=== PATIENT | male | born 1940 | race Caucasian/White ===

== ENCOUNTER 2025-10-09 14:40 | Emergency (ER) | payer SELFPAY ==
[2025-10-09] VITALS (19 sets, daily range): BP systolic 129–164; BP diastolic 62–77; PULSE 69–112; RESP 18–25; TEMP 37.4; O2SAT 90–99; BMI 23.7
--- NOTE | 2025-10-09 14:59 | ED_ITS ---
HPI - General Adult General Chief complaint: Neuro Symptoms/Deficit Stated complaint: post op / slurred speech Time Seen by Provider: 10/09/25 14:59 History of Present Illness HPI narrative: 85-year-old gentleman who had a traumatic brain bleed was sent to [facility] had a craniotomy discharged home yesterday seemed to be improving his family notes that by mid day today he has slightly drooping left face, is no longer able to speak with increasing weakness. This is a definite change from yesterday. Family describes that he was able to carry on a complete conversation, he is slightly hard of hearing, he was independent with cane for assistance with an acute change to all of that at around noon. Review of Systems Review of Systems Narrative: Pertinent positive and negative findings as per HPI Patient History Medical History (Updated 10/09/25 @ 18:52 by Bibi Cox MD) Hyperlipidemia Hypertension Severe aortic stenosis Emphysema (subcutaneous) (surgical) resulting from a procedure Type 2 diabetes mellitus Intracranial hemorrhage Social History Smoking Status: Never smoker Exam Initial Vital Signs Initial Vital Signs: Vital Signs Temperature 99.3 F 10/09/25 14:51 Pulse Rate 102 H 10/09/25 14:51 Respiratory Rate 18 10/09/25 14:51 Blood Pressure 129/67 10/09/25 14:51 Pulse Oximetry 97 10/09/25 14:51 Oxygen Delivery Method Room Air 10/09/25 14:51 General: Chronically ill-appearing, anastacia still in place over the scalp with a recent craniotomy, in a wheelchair, HEENT: Moist mucous membranes, normal sclera with reactive pupils, Respiratory: Lungs are clear to auscultation, no wheezing no rales no rhonchi. Full and symmetrical air movement Cardiac: Regular rate and rhythm, systolic ejection murmur Abdomen: Soft, nontender, no rebound or guarding, no flank pain Skin: Warm and dry, Neurologic: Globally weak, significant hearing loss at baseline, significant expressive aphasia and moderate dysarthria, slight left facial droop, global weakness in upper and lower extremities symmetrically Extremities: No trauma, Course Orders Ordered: ED Orders 10/09/25 15:01 CT head/brain wo con Stat 10/09/25 15:02 XR chest 1V Stat EKG-12 Lead Stat 10/09/25 15:12 Complete Blood Count AUTO DIFF Stat Comprehensive Metabolic Panel Stat Lactate (Lactic Acid) Stat Magnesium Stat NT-proBNP (BNP-Adult 18+) Stat PTT Partial Thromboplastin Fidel Stat Procalcitonin Stat Prothrombin Time INR Stat Troponin I Stat 10/09/25 18:15 Urinalysis and Microscopic Stat Hydromorphone HCl (Hydromorphone Hcl 0.5 Mg/0.5 Ml Syringe) 0.5 mg IV Q15MIN PRN PRN Reason: Pain, Last Admin: 10/09/25 16:39 Dose: 0.5 mg Documented By: LYLE Vital Signs Vital signs: Vital Signs - 8 hr 10/09/25 14:51 10/09/25 15:35 10/09/25 16:00 Temperature 99.3 F Pulse Rate 102 H 83 84 Respiratory Rate 18 21 24 Blood Pressure 129/67 Pulse Oximetry 97 99 96 Oxygen Delivery Method Room Air Nasal Cannula Oxygen Flow Rate 2 10/09/25 16:03 10/09/25 16:03 10/09/25 16:30 Temperature Pulse Rate 82 Respiratory Rate 22 Blood Pressure 144/67 H 154/69 H Pulse Oximetry 94 Oxygen Delivery Method Oxygen Flow Rate 10/09/25 16:30 10/09/25 17:00 10/09/25 17:01 Temperature Pulse Rate 80 112 H Respiratory Rate 24 24 Blood Pressure 147/65 H Pulse Oximetry 96 Oxygen Delivery Method Nasal Cannula Oxygen Flow Rate 2 10/09/25 17:01 10/09/25 17:30 10/09/25 17:30 Temperature Pulse Rate 112 H 91 H Respiratory Rate 25 H 24 Blood Pressure 147/77 H Pulse Oximetry 91 93 Oxygen Delivery Method Nasal Cannula Nasal Cannula Oxygen Flow Rate 2 2 10/09/25 18:00 10/09/25 18:00 10/09/25 18:30 Temperature Pulse Rate 88 83 Respiratory Rate 22 21 Blood Pressure 154/77 H Pulse Oximetry 99 Oxygen Delivery Method Oxygen Flow Rate 10/09/25 18:30 Temperature Pulse Rate Respiratory Rate Blood Pressure 164/70 H Pulse Oximetry Oxygen Delivery Method Oxygen Flow Rate Medical Decision Making Lab Data 10/09/25 15:12 10/09/25 15:12 Labs: Lab Results 10/09/25 10/09/25 10/09/25 Range/Units 15:12 17:14 18:15 WBC 7.5 (4.5-11.0) X10^3/uL RBC 3.80 L (4.5-5.9) X10^6/uL Hgb 10.2 L (13.5-17.5) g/dL Hct 31.2 L (41-53) % MCV 82.2 (80-100) fL MCH 26.8 (26-34) PG MCHC 32.6 (30-36) % RDW 18.5 H (11.6-14.8) % Plt Count 219 (150-400) X10^3/uL Neut % (Auto) 70.6 (50-75) % Lymph % (Auto) 17.1 L (25-40) % [place] % (Auto) 7.4 (3-14) % Eos % (Auto) 3.2 (2-4) % Baso % (Auto) 1.7 (0-2) % Neut # (Auto) 5300 (4315-9813) /uL Lymph # (Auto) 1300 (8182-2019) /uL [place] # (Auto) 600 (0-900) /uL Eos # (Auto) 200 (0-450) /uL Baso # (Auto) 100 (0-100) /uL PT 12.6 H (9.4-12.5) SECONDS INR 1.1 (0.9-1.3) APTT 24 L (25.1-36.5) SECONDS Sodium 135 L (137-145) mmol/L Potassium 4.1 (3.4-5.1) mmol/L Chloride 101 (98-107) mmol/L Carbon Dioxide 22 (22-32) mmol/L BUN 15 (9-20) mg/dL Creatinine 0.75 (0.66-1.25) mg/dL Estimated GFR > 60 (>60) mL/min BUN/Creatinine Ratio 20.0 (6-22) Glucose 140 H (70-99) mg/dL Lactate 2.6 H 2.1 (0.7-2.1) mmol/L Calcium 8.4 (8.4-10.2) mg/dL Magnesium 1.0 L (1.6-2.3) mg/dL Total Bilirubin 0.7 (0.2-1.3) mg/dL AST 35 (17-59) IU/L ALT 19 (<50) IU/L Alkaline Phosphatase 191 H (38-126) U/L Troponin I < 0.012 (0.01-0.034) ng/mL NT-Pro-B Natriuret Pep 404 (<450) pg/mL Total Protein 7.7 (6.3-8.2) g/dL Albumin 4.1 (3.5-5.0) g/dL Globulin 3.6 (1.7-4.1) g/dL Albumin/Globulin Ratio 1.1 (1.0-2.8) Procalcitonin 0.070 (<0.5) ng/mL Urine Color Yellow Urine Appearance Clear Urine pH 7.0 (4.5-8.0) Ur Specific [place] 1.015 (1.000-1.035) Urine Protein Trace H (Negative) Urine Glucose (UA) Negative (Negative) g/dL Urine Ketones Negative (NEGATIVE) Urine Occult Blood Negative (Negative) Urine Nitrate Negative (Negative) Urine Bilirubin Negative (NEGATIVE) Urine Urobilinogen 2.0 H (0.2) E.U./dL Ur Leukocyte Esterase Negative (NEGATIVE) Urine RBC 0-1/hpf (0-5/HPF) Urine WBC 0-1/hpf (0-5/HPF) Ur Squamous Epith Cells 0-1 /hpf (0-5/HPF) Urine Bacteria Occasional (0-1) (None) Ur Culture Indicated? Cult not indicated Vol Urine Centrifuged 10ml (spun) Imaging Data CT scan - head: Radiologist's Impression: PROCEDURE: CT HEAD/BRAIN WO CON INDICATIONS: altered mental status TECHNIQUE: Noncontrast 4.5 mm thick angled axial sections acquired from the foramen magnum to the vertex, with coronal and sagittal reformats. For radiation dose reduction, the following was used: automated exposure control, adjustment of mA and/or kV according to patient size. COMPARISON: None. FINDINGS: CSF spaces: No hydrocephalus Brain: Residual left-sided subdural hematoma with both acute and chronic components measures up to 1.5 cm in thickness. Mixed postprocedural air within hematoma as well. Chronic appearing right-sided subdural measures 9 mm in thickness. 0.6 cm midline shift to the right Skull and face: Left-sided craniotomy secured by round plates. Right frontal and right parietal reynold holes also covered by round plates. Left scalp postprocedural soft tissue swelling and skin anastacia Sinuses: Visualized sinuses and mastoids are clear. 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 Smaller chronic right subdural hematoma status post reynold hole evacuation also has a tiny acute component inferiorly Approved by: Luis Angel Pa M.D. on 10/09/2025 at 14:43 MDM Narrative Medical decision making narrative: 85-year-old gentleman comes in with acute mental status changes for around noon today Discharged from [facility] yesterday after evaluation for acute on subacute subdural hematoma with mass effect and midline shift. On the he had a left-sided craniotomy for evacuation of acute on chronic subdural hematoma. Notes indicate that he had right-sided reynold hole craniotomy at a different hospital in July of this year. Son with whom he lives states that he took medications as prescribed, when he came home he was conversant alert, appropriate as he was when he woke up this morning. Shortly after noon, significantly worse and currently is showing significant expressive aphasia as well as dysarthria with global lysed weakness. CT scan shows acute on chronic left-sided subdural hematoma status post craniotomy with 6 mm midline shift with a small chronic right subdural hematoma post reynold hole evacuation. Labs CBC shows a white count of 7.5, hemoglobin 10.2 and platelets appropriate at 212 Coagulation studies show INR at 1.1, PTT low at 24 Chemistries show normal renal function, liver studies are unremarkable, alk-phos minimally elevated at 191 Lactic acid is initially 2.6 and comes back at 2.1 on repeat Troponin is undetectable BNP is not elevated Discussion with [facility] transfer center we will discuss Neurosurgery Reviewed with Neurosurgery who recommends ED to ED transfer. Discussed with the patient and his family. We will arrange for ALS transport back to [facility] for further evaluation. Patient is not acutely decompensating and does not need air lift transfer. Discharge Plan Departure Patient Disposition: [facility] Clinical Impression: Intracranial hemorrhage
--- NOTE | 2025-10-09 15:02 | EKG_ITS ---
[address] [address] Test Date: 2025-10-09 Pat Name: Rahul Cornell Department: [facility] Room: Gender: Male [facility] Rn: JONO : 1940 Requested By: Order Number: [id number] Reading MD: Roger Hodgson Measurements Intervals Universal Rate: 82 P: [place]: 132 QRS: 62 QRSD: 136 T: 19 QT: 384 QTc: 448 Interpretive Statements Normal sinus rhythm Right bundle branch block Cannot rule out Inferior infarct , age undetermined Electronically Signed On 10-10-2025 8:00:08 PST by Roger Hodgson
--- NOTE | 2025-10-09 15:02 | DI.RAD.S_ITS ---
PROCEDURE: XR CHEST 1V INDICATIONS: altered mental status TECHNIQUE: One view of the chest was acquired. COMPARISON: None. FINDINGS: Surgical changes and devices: None. Lungs and pleura: Right upper lobe pleural parenchymal density. Underlying chronic interstitial changes and vascular congestion. Aortic valve replacement. Mediastinum: Heart size is enlarged. Moderate vascular congestion Bones and chest wall: No suspicious bony lesions. Overlying soft tissues appear unremarkable. IMPRESSION: Cardiomegaly, moderate vascular congestion and chronic interstitial changes. Superimposed right upper lobe pleural parenchymal density may reflect atelectasis and or infiltrate. Approved by: Luis Angel Pa M.D. on 10/09/2025 at 15:03
[2025-10-09 15:24] LABS: Add Manual Diff / Slide Review NO; Hematocrit 31.2 % (41-53); Hemoglobin 10.2 g/dL (13.5-17.5); Lymphocytes Absolute Auto 1300 /uL (1100-4500); Mean Corpuscular HGB Conc 32.6 % (30-36); Mean Corpuscular Hemoglobin 26.8 PG (26-34); Mean Corpuscular Volume 82.2 fL (80-100); Platelet Count 219 X10^3/uL (150-400)
[2025-10-09 15:34] LABS: INR 1.1 (0.9-1.3); Prothrombin Time 12.6 SECONDS (9.4-12.5)
[2025-10-09 15:38] LABS: Alanine Aminotransferase 19 IU/L (<50); Albumin 4.1 g/dL (3.5-5.0); Albumin Globulin Ratio 1.1 (1.0-2.8); Alkaline Phosphatase 191 U/L (38-126); Blood Urea Nitrogen 15 mg/dL (9-20); Calcium 8.4 mg/dL (8.4-10.2); Carbon Dioxide 22 mmol/L (22-32); Chloride 101 mmol/L (98-107); Estimated Glomerular Filt Rate > 60 mL/min (>60); Globulin 3.6 g/dL (1.7-4.1); Glucose 140 mg/dL (70-99); HEMOLYSIS < 15 (0-50); Magnesium 1.0 mg/dL (1.6-2.3); Potassium 4.1 mmol/L (3.4-5.1); Sodium 135 mmol/L (137-145); Total Protein 7.7 g/dL (6.3-8.2)
[2025-10-09 15:39] LABS: Lactate (Lactic Acid) 2.6 mmol/L (0.7-2.1)
[2025-10-09 15:43] LABS: PTT Partial Thromboplastin Tim 24 SECONDS (25.1-36.5)
[2025-10-09 15:51] LABS: NT-proBNP (BNP-Adult 18+) 404 pg/mL (<450); Troponin I < 0.012 ng/mL (0.01-0.034)
[2025-10-09 15:55] LABS: Procalcitonin 0.070 ng/mL (<0.5)
--- NOTE | 2025-10-09 15:55 | PC.NURSE ---
Patient altered mental status, recent craniotomy, recent shunt and cauterization - as well. Pt experienced fall 30+ days ago, did not receive care at that time, multiple complications post fall per family. Pt altered at baseline but family states pt is more altered than usual.
[2025-10-09 16:54] LABS: Reflexed Lactate in 2 Hours Y
[2025-10-09 17:38] LABS: Lactate 2HR (Lactic Acid Rflx) 2.1 mmol/L (0.7-2.1)
[2025-10-09 18:34] LABS: Appearance Urine UA CLEAR; Bilirubin Urine UA NEGATIVE (NEGATIVE); Color Urine UA YELLOW; Glucose Urine UA NEGATIVE (Negative); Ketones Urine UA NEGATIVE (NEGATIVE); Leukocyte Esterase Urine UA NEGATIVE (NEGATIVE); Nitrite Urine UA NEGATIVE (Negative); Occult Blood Urine UA NEGATIVE (Negative); Protein Urine UA TRACE (Negative); Specific Gravity Urine UA 1.015 (1.000-1.035); Urobilinogen Urine UA 2.0 E.U./dL (0.2); pH Urine UA 7.0 (4.5-8.0)
[2025-10-09 18:41] LABS: Culture Indicated Urine Cult Not Indicated
--- NOTE | 2025-10-09 18:42 | PC.NURSE ---
[facility] [place]: / contacted for Neuro consult at 1720. Images pushed, reports and demographics faxed. HV accepted by Dr. Christianson to go ED to ED at 1803. [facility] ALS transport ETA to 2014. / notified of ETA.
== END 2025-10-09 20:51 | disposition short-term general hospital (02) ==
PROVIDERS: Emergency Provider Emergency Medicine
DX: I62.9 Nontraumatic intracranial hemorrhage, unspecified (principal); R29.810 Facial weakness; R47.01 Aphasia; R47.1 Dysarthria and anarthria; Z86.69 Personal history of other diseases of the nervous system and sense organs; Z98.890 Other specified postprocedural states
CPT/HCPCS: 36415; 51798; 70450; 71045; 80053; 81001; 83605; 83735; 83880; 84145; 84484; 85025; 85610; 85730; 93005; 96374; 99285; J1171

== ENCOUNTER → 2025-10-30 12:48 | Outpatient (CLI) | payer MEDICARE, SELFPAY ==
--- NOTE | 2025-10-30 12:49 | DI.CT.S_ITS ---
PROCEDURE: CT HEAD/BRAIN WO CON INDICATIONS: SDH TECHNIQUE: Noncontrast 4.5 mm thick angled axial sections acquired from the foramen magnum to the vertex, with coronal and sagittal reformats. For radiation dose reduction, the following was used: automated exposure control, adjustment of mA and/or kV according to patient size. COMPARISON: [facility], CT, CT HEAD/BRAIN WO CON, 10/09/2025, 15:08. FINDINGS: Image quality: Diagnostic. CSF spaces: Basal cisterns are patent. Significant interval decrease in the size of a left subdural hematoma which previously measured approximately 17 mm in thickness and now measures approximately 6.5 mm in thickness. Reference prior axial image 23 of series 2 and current axial image 23 of series 4. The ventricles are symmetric in size and shape. Brain: Significant interval decrease in size of left subdural hematoma as described. Resolution of midline shift. There is cerebral volume loss, with resultant ventricular and sulcal prominence. There are periventricular and deep white matter chronic small vessel ischemic changes. There is intracranial internal carotid artery atherosclerosis. Skull and face: There continue to be skin anastacia related to recent left temporal craniotomy. There are also bilateral reynold holes. Calvarium and visualized facial bones appear intact, without suspicious lesions. Sinuses: Visualized sinuses and mastoids are clear. IMPRESSION: Significant interval decrease in the size of a left subdural hematoma with no evidence of re-hemorrhage and resolution of midline shift. Dictated by: Vinayak Shelley M.D. on 10/31/2025 at 10:15 Approved by: Vinayak Shelley M.D. on 10/31/2025 at 10:18
== END ==
PROVIDERS: PCP Student in an Organized Health Care Education/Training Program
DX: S06.5XAA Traumatic subdural hemorrhage with loss of consciousness status unknown, initial encounter (principal)
CPT/HCPCS: 70450